=== PATIENT | male | born 1985 | race Native Hawaiian/Other Pacific Islander ===

== ENCOUNTER → 2024-06-20 | Outpatient (CLI) | payer MEDICAID, SELFPAY ==
--- NOTE | 2024-06-20 13:30 | XR_ITS ---
Examination: MRI pelvis with intravenous contrast. MRI pelvis without intravenous contrast. Date and time of exam: June 20, 2024 1408 hours INDICATIONS: Rectal bleeding anal rectal pain beginning 3 months ago, colonoscopy May 18, 2024 mass detected Technique: Multiple axial, sagittal and coronal sections of the pelvis obtained. Transverse images, TR 6020, TE 107. T1 weighted transverse images, TR 582, TE 9.5. T2-weighted sagittal images, TR 4000, TE 105. T2-weighted sagittal images, TR 4000, TE 5. Coronal images, TR 4210, TE 107. Axial and coronal images are obtained post 19 cc intravenous injection, gadolinium. Findings: Rectosigmoid mass, sagittal image 20, axial image 25, coronal image 16, which shows irregular wall enhancement This mass measures cephalad caudad dimension 5.3 cm The mass exhibits rectal wall thickening almost occluding the lumen, axial image 26 measuring up to 19 mm The lower end of the mass appears to begin 25 mm from the anus No perirectal lymph nodes depicted No common iliac and external iliac or common femoral lymphadenopathy No free fluid in the abdomen Contracted urinary bladder Homogeneous signal vertebral bodies Fat plane exists between the rectal mass and the prostate IMPRESSION: Rectosigmoid mass cephalad caudad dimension 5.3 cm, wall thickening measuring up to [address] scan follow-up
== END | disposition home or self-care (01) ==
PROVIDERS: PCP Internal Medicine Gastroenterology; Referring Provider Internal Medicine Gastroenterology; Visit Provider Internal Medicine Gastroenterology
DX: R19.09 Other intra-abdominal and pelvic swelling, mass and lump (principal)
CPT/HCPCS: 72197; A9579

== ENCOUNTER 2024-07-15 04:35 | Emergency (ER) | payer MEDICAID, SELFPAY ==
[2024-07-15 04:37] VITALS: BMI 32.8
[2024-07-15 04:47] VITALS: BP 129/95; PULSE 86; RESP 18; TEMP 36.4; O2SAT 98
--- NOTE | 2024-07-15 04:54 | PD.EDRME ---
Rapid Medical Screening Exam RME Arrival date/time: 07/15/24 04:35 39M with extensive history including of CVA, HTN, CHF, DM, and recent diagnosis of colon cancer presents to ED with 2 days of non-painful red bloody stool. Patient had a colonoscopy 2 months ago in [place] where a cancerous mass was found. Patient is awaiting insurance approval for surgery. Patient and his mom are just here because they are concerned about his Hgb levels given it was a lot of blood. Chief Complaint: Abdominal Pain Vital signs: Vital Signs Temperature 97.6 F 07/15/24 04:47 Pulse Rate 86 07/15/24 04:47 Respiratory Rate 18 07/15/24 04:47 Blood Pressure 129/95 H 07/15/24 04:47 Pulse Oximetry (%) 98 07/15/24 04:47 Oxygen Delivery Method Room Air 07/15/24 04:47
[2024-07-15 05:35] LABS: Basophils # (Auto) 0.1 Thou/mm3 (0.0-0.2); Basophils % (Auto) 1 % (0-2.5); Eosinophils # (Auto) 0.3 Thou/mm3 (0.0-0.5); Eosinophils % (Auto) 3 % (0-10); Hemoglobin 13.6 g/dL (13.5-16.0); Immature Granulocytes % (Auto) 0 % (0-0); Immature Granulocytes Auto 0.03 Thou/mm3 (0.00-0.00); Lymphocytes # (Auto) 3.1 Thou/mm3 (1.0-4.8); Lymphocytes % (Auto) 39 % (10-50); Mean Corpuscular HGB Conc 31.6 g/dl (31.0-37.0); Mean Corpuscular Hemoglobin 26.6 pg (25.0-35.0); Mean Corpuscular Volume 84 fL (80-100); Monocytes # (Auto) 0.7 Thou/mm3 (0.0-0.8); Monocytes % (Auto) 9 % (0-12); Neutrophils # (Auto) 3.7 Thou/mm3 (1.8-7.7); Neutrophils % (Auto) 47 % (37-80); Nucleated Red Blood Cell % 0 /100 WBC (0); Platelet Count 285 Thou/mm3 (140-440); Red Blood Count 5.11 Miln/mm3 (4.50-5.90); White Blood Count 7.8 Thou/mm3 (3.8-10.6)
[2024-07-15 05:53] LABS: Partial Thromboplastin Time 27.3 Seconds (22.0-36.0); Prothrombin Time 10.9 Seconds (9.0-12.2)
[2024-07-15 06:02] LABS: Alanine Aminotransferase 52 U/L (10-49); Albumin, Serum 4.3 gm/dL (3.5-5.0); Albumin/Globulin Ratio 1.4 (1.2-2.2); Alkaline Phosphatase 58 U/L (46-116); Anion Gap 9 (7-16); Aspartate Amino Transferase 25 U/L (0-34); BUN/Creatinine Ratio 12 Ratio (12-20); Bilirubin,Total 0.4 mg/dL (0.3-1.2); Blood Urea Nitrogen 12 mg/dL (9-23); Calcium 9.2 mg/dL (8.3-10.6); Calcium (Corrected) 9.2 mg/dL (8.5-10.1); Carbon Dioxide 29.2 mMol/L (20.0-31.0); Chloride 103 mMol/L (98-107); Estimated Creatinine Clearance 106.9 mL/min (>60); Glucose 139 mg/dL (74-106); Osmolality,Calculated 282 (275-295); Potassium 4.5 mMol/L (3.4-5.1); Sodium 141 mMol/L (136-145); Total Protein 7.3 gm/dL (5.7-8.2); eGFR > 60 See Note
--- NOTE | 2024-07-15 09:55 | PC.NURSE ---
PATIENT CALLED TWICE TO REPEAT VS AND TAKE BACK TO ROOM. NO ANSWER IN LOBBY. SECURITY STATES PT WAS SEEN LEAVING WITH FAMILY
== END 2024-07-15 09:58 | disposition left against medical advice (07) ==
LOC: SERX 05:08
PROVIDERS: Physician Assistant; Emergency Provider Emergency Medicine; PCP Internal Medicine Hospice and Palliative Medicine
DX: K92.1 Melena (principal); Z53.29 Procedure and treatment not carried out because of patient's decision for other reasons
CPT/HCPCS: 36415; 80053; 85025; 85610; 85730; 99281

== ENCOUNTER → 2024-07-26 | Outpatient (CLI) | payer MEDICAID, SELFPAY | END | disposition home or self-care (01) | PROVIDERS: PCP Internal Medicine Hospice and Palliative Medicine; Referring Provider Internal Medicine Gastroenterology; Visit Provider Internal Medicine Gastroenterology | DX: Z53.8 Procedure and treatment not carried out for other reasons (principal) ==

== ENCOUNTER → 2024-08-09 | Outpatient (CLI) | payer MEDICAID, SELFPAY ==
--- NOTE | 2024-08-09 15:30 | XR_ITS ---
Examination: CT abdomen, without intravenous contrast. CT pelvis, without intravenous contrast. CT abdomen, with intravenous contrast. CT pelvis, with intravenous contrast. 2-D sagittal coronal reconstructions. Date and time of exam:August 09, 2024 1605 hrs. Comparison June 23, 2020 Indications: Diagnosis malignant neoplasm of the colon May 2024, hematochezia CTDI: vol (mGy) 21.1 DLP: (mGycm) 1275 Technique: Multiple 3.0 axial images of the abdomen and pelvis without intravenous contrast, 3.0 mm slice thickness. Multiple 3.0 postcontrast images abdomen and pelvis also obtained, post intravenous injection 60 cc Isovue-370 2-D sagittal and coronal reconstructions. Low dose protocols were performed. One or more of the following dose reduction techniques were used; automated exposure control, adjustment of the mA and/or KV according to patient size, use of iterative reconstruction technique. Findings: Fatty infiltration throughout the liver no focal liver lesions Gallstones Spleen is not enlarged No pancreatic or adrenal mass Bilateral 1 to 2 mm renal calculi No hydronephrosis or renal calculi No abdominal lymphadenopathy Normal appendix No bowel obstruction Urinary bladder intact No prostatomegaly No pelvic lymphadenopathy Mild to moderate diffuse lumbar disc narrowing Impression: Diffuse fatty infiltration throughout the liver Cholelithiasis Tiny bilateral nonobstructing renal calculi No focal liver lesions No abdominal or pelvic lymphadenopathy
--- NOTE | 2024-08-09 15:30 | XR_ITS ---
Examination: CT chest with intravenous contrast 2-D sagittal and coronal reconstructions Exam date and time: August 09, 2024 1605 hrs. Comparison June 23, 2020 Indications: Diagnosis malignant neoplasm of the colon May 2024, hematochezia beginning May 2024, restaging CTDI:vol (mGy) 15.9 DLP: (mGycm) 584 Technique: Multiple axial sections of the thorax have been obtained. Sections have been obtained, 3 mm slice thickness. Mediastinal and lung density settings have been obtained. Intravenous contrast administered, 60 cc Isovue-370. 2-D sagittal, coronal images obtained. Low dose protocols were performed. One or more of the following dose reduction techniques were used; automated exposure control, adjustment of the mA and/or KV according to patient size, use of iterative reconstruction technique. Findings: No thoracic aortic aneurysm dilatation Pulmonary artery opacification is poor Heavy calcification left anterior descending coronary artery Mild enlargement cardiac contour No paratracheal tracheobronchial or bronchopulmonary adenopathy Mild vascular congestion No lobar pneumonia or pulmonary edema No pulmonary nodules Diffuse fatty infiltration throughout the liver Spleen is not enlarged Cholelithiasis No pancreatic or adrenal mass Impression: No mediastinal lymphadenopathy Heavy calcification left anterior descending coronary artery No pneumonia, pulmonary edema or pulmonary nodules Cholelithiasis
== END | disposition home or self-care (01) ==
PROVIDERS: Referring Provider Physician Assistant; Visit Provider Physician Assistant
DX: I25.10 Atherosclerotic heart disease of native coronary artery without angina pectoris (principal); K80.20 Calculus of gallbladder without cholecystitis without obstruction; N20.0 Calculus of kidney; K76.0 Fatty (change of) liver, not elsewhere classified
CPT/HCPCS: 71260; 74178; A4649; Q9967